=== PATIENT | male | born 1970 | race Caucasian/White ===

== ENCOUNTER 2019-10-29 16:39 | Emergency (ER) | payer BC ==
--- NOTE | 2019-10-29 16:48 | EDM.PDOC ---
ED HPI GENERAL MEDICAL PROBLEM - General Stated Complaint: SOB, FROM CLINIC Time Seen by Provider: 10/29/19 16:45 Source of Information: Reports: Patient History Limitations: Reports: No Limitations - History of Present Illness INITIAL COMMENTS - FREE TEXT/NARRATIVE: 49-year-old male who reports on Tuesday developed cough with some feelings of difficulty breathing and wheezing. He states it was mostly in his upper chest and since Tuesday and has progressively worsened with time and seemed to move into his lower chest increase wheezing and increased shortness of breath. Today it was quite severe and he presented to the [facility] in [place] with O2 saturations of 80% on room air. EMS was called and the patient was transported here for evaluation. He did receive a DuoNeb on the way over and he reports minimal relief of his difficulty breathing with this DuoNeb. He also developed bilateral sharp chest pains on Tuesday associated with the cough and deep breaths and these seem to have worsened with time as well. He rates this pain is as a 7-8/10 at present. They do not radiate. He has had no phlegm production. He has had no hemoptysis. No fever or chills. No nausea or vomiting. He has had decreased appetite and decreased oral intake over the past 24 hours. He has never had breathing problems in the past. He is a smoker. There are no other associated signs or symptoms. There are no other modifying factors. 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) ED ROS GENERAL - Review of Systems Review Of Systems: See Below Constitutional: Reports: No Symptoms HEENT: Reports: No Symptoms Respiratory: Reports: Shortness of Breath, Wheezing, Pleuritic Chest Pain, Cough Cardiovascular: Reports: Chest Pain GI/Abdominal: Reports: No Symptoms : Reports: No Symptoms Musculoskeletal: Reports: No Symptoms Skin: Reports: No Symptoms Neurological: Reports: No Symptoms Hematologic/Lymphatic: Reports: No Symptoms Immunologic: Reports: No Symptoms ED EXAM, GENERAL - Physical Exam Exam: See Below Exam Limited By: No Limitations General Appearance: Alert, WD/WN, Moderate Distress (The patient is awake and alert. He is in some respiratory distress with increased work of breathing.) Eye Exam: Bilateral Eye: EOMI, Normal Inspection, PERRL Ears: Normal External Exam, Hearing Grossly Normal Ear Exam: Bilateral Ear: Auricle Normal Nose: Normal Inspection, Normal Mucosa, No Blood Throat/Mouth: Normal Inspection, Normal Lips, Normal Oropharynx, Normal Voice, No Airway Compromise, Other (The patient is edentulous) Head: Atraumatic, Normocephalic Neck: Normal Inspection, Supple, Non-Tender, Full Range of Motion Respiratory/Chest: Respiratory Distress, Rhonchi, Wheezing, Accessory Muscle Use , Retractions, Prolonged Expiration Cardiovascular: Normal Peripheral Pulses, Regular Rate, Rhythm, No JVD, No Murmur Peripheral Pulses: 2+: Radial (L), Radial (R), Dorsalis Pedis (L), Dorsalis Pedis (R) GI/Abdominal: Normal Bowel Sounds, Soft, Non-Tender, No Mass Back Exam: Normal Inspection, Full Range of Motion Extremities: Normal Range of Motion, Non-Tender, No Pedal Edema, Normal Capillary Refill, Other (Patient with deformity to left foot from previous amputation what appears to be a transmetatarsal amputation) Neurological: Alert, Oriented, CN II-XII Intact, Normal Cognition, No Motor/ Sensory Deficits Psychiatric: Normal Affect Skin Exam: Warm, Dry, Intact, Normal Color, No Rash EKG INTERPRETATION EKG Date: 10/29/19 Time: 17:04 Rhythm: NSR Rate (Beats/Min): 86 [place]: Normal P-Wave: Present QRS: Normal ST-T: Other (Inferior and lateral T-wave flattening) QT: Normal Comparison: NA - No Prior EKG Course - Vital Signs Last Recorded V/S: Last Vital Signs Temp 36.1 C 10/29/19 16:39 Pulse 93 10/29/19 16:39 Resp 18 10/29/19 16:39 BP 133/86 10/29/19 16:39 Pulse Ox 77 L 10/29/19 16:39 - Orders/Labs/Meds Orders: Active Orders 24 hr Category Date Time Status EKG Documentation Completion [RC] ASDIRECTED Care 10/29/19 16:59 Active RT Aerosol Therapy [RC] ASDIRECTED Care 10/29/19 17:00 Active Chest 1V Frontal [CR] Stat Exams 10/29/19 16:58 Taken BLOOD GAS VENOUS [BG] Stat Lab 10/29/19 18:30 Received CULTURE BLOOD [BC] Urgent Lab 10/29/19 18:30 Received CULTURE BLOOD [BC] Urgent Lab 10/29/19 18:39 Received ISTAT G3,VENOUS [POC] Routine Lab 10/29/19 18:50 Results UA W/MICROSCOPIC [URIN] Stat Lab 10/29/19 17:53 Ordered Sodium Chloride 0.9% [Normal Saline] 1,000 ml Med 10/29/19 17:00 Active IV ASDIRECTED Sodium Chloride 0.9% [Saline Flush] Med 10/29/19 16:58 Active 10 ml FLUSH ASDIRECTED PRN Blood Culture x2 Reflex Set [OM.PC] Urgent Oth 10/29/19 17:50 Ordered Peripheral IV Insertion Adult [OM.PC] Routine Oth 10/29/19 16:58 Ordered EKG 12 Lead [EK] Routine Ther 10/29/19 16:58 Ordered Medication Orders Sodium Chloride (Normal Saline) 1,000 mls @ 125 mls/hr IV ASDIRECTED JEANIE Last Admin: 10/29/19 17:23 Dose: 125 mls/hr Sodium Chloride (Saline Flush) 10 ml FLUSH ASDIRECTED PRN PRN Reason: Keep Vein Open Last Admin: 10/29/19 17:24 Dose: 10 ml Labs: Laboratory Tests 10/29/19 10/29/19 10/29/19 Range/Units 17:10 17:10 17:10 WBC 6.0 (4.5-12.0) X10-3/uL RBC 3.30 L (4.30-5.75) x10(6)uL Hgb 10.3 L (13.5-17.8) g/dL Hct 30.3 (30.0-51.3) % MCV 91.9 (80-96) fL MCH 31.3 (27.7-33.6) pg MCHC 34.0 (32.2-35.4) g/dL RDW 15.2 (11.5-15.5) % Plt Count 155 (125-369) X10(3)uL MPV 8.0 (7.4-10.4) fL Neut % (Auto) 78.6 (46-82) % Lymph % (Auto) 15.1 (13-37) % Treasure % (Auto) 5.9 (4-12) % Eos % (Auto) 0 L (1.0-5.0) % Baso % (Auto) 0 (0-2) % Neut # (Auto) 4.7 (1.6-8.3) # Lymph # (Auto) 0.9 (0.6-5.0) # Treasure # (Auto) 0.4 (0.0-1.3) # Eos # (Auto) 0.0 (0.0-0.8) # Baso # (Auto) 0.0 (0.0-0.2) # PT (8.7-11.1) INR (0.89-1.13) APTT (24.4-33.2) SECONDS D-Dimer, Quantitative (0.0-0.59) mg/LFEU POC VBG pH (7.31-7.41) POC VBG pCO2 (41-51) mmHG POC VBG Total CO2 (24-29) mmol/L POC VBG Base Excess (-2-3) mmol/L Sodium 141 (135-145) mmol/L Potassium 3.6 (3.5-5.3) mmol/L Chloride 99 L (100-110) mmol/L Carbon Dioxide 34 H (21-32) mmol/L BUN 19 H (7-18) mg/dL Creatinine 1.2 (0.70-1.30) mg/dL Est Cr Clr Drug Dosing TNP Estimated GFR (MDRD) > 60 (>60) BUN/Creatinine Ratio 15.8 (9-20) Glucose 103 (80-116) mg/dL Calcium 8.9 (8.6-10.2) mg/dL Magnesium (1.8-2.5) mg/dL Total Bilirubin 0.5 (0.1-1.3) mg/dL AST 39 H (5-25) IU/L ALT 27 (12-36) U/L Alkaline Phosphatase 41 L (56-112) IU/L Troponin I 6.7 (4.0-60.3) pg/mL C-Reactive Protein 15.9 H* (0.5-0.9) mg/dL NT-Pro-B Natriuret Pep 239 H (<=125) pg/mL Total Protein 8.0 (6.0-8.0) g/dL Albumin 4.3 (3.5-5.2) g/dL Globulin 3.7 g/dL Albumin/Globulin Ratio 1.2 Urine Opiates Screen (NEGATIVE) Ur Oxycodone Screen (NEGATIVE) Ur Propoxyphene Screen (NEGATIVE) Ur Barbituates Screen (NEGATIVE) Ur Tricyclics Screen (NEGATIVE) Ur Phencyclidine Scrn (NEGATIVE) Ur Amphetamine Screen (NEGATIVE) Urine MDMA Screen (NEGATIVE) U Benzodiazepines Scrn (NEGATIVE) U Cocaine Metab Screen (NEGATIVE) U Marijuana (THC) Screen (NEGATIVE) 10/29/19 10/29/19 10/29/19 Range/Units 17:10 17:10 17:10 WBC (4.5-12.0) X10-3/uL RBC (4.30-5.75) x10(6)uL Hgb (13.5-17.8) g/dL Hct (30.0-51.3) % MCV (80-96) fL MCH (27.7-33.6) pg MCHC (32.2-35.4) g/dL RDW (11.5-15.5) % Plt Count (125-369) X10(3)uL MPV (7.4-10.4) fL Neut % (Auto) (46-82) % Lymph % (Auto) (13-37) % Treasure % (Auto) (4-12) % Eos % (Auto) (1.0-5.0) % Baso % (Auto) (0-2) % Neut # (Auto) (1.6-8.3) # Lymph # (Auto) (0.6-5.0) # Treasure # (Auto) (0.0-1.3) # Eos # (Auto) (0.0-0.8) # Baso # (Auto) (0.0-0.2) # PT 10.4 (8.7-11.1) INR 1.07 (0.89-1.13) APTT 33.0 (24.4-33.2) SECONDS D-Dimer, Quantitative 0.61 H (0.0-0.59) mg/LFEU POC VBG pH (7.31-7.41) POC VBG pCO2 (41-51) mmHG POC VBG Total CO2 (24-29) mmol/L POC VBG Base Excess (-2-3) mmol/L Sodium (135-145) mmol/L Potassium (3.5-5.3) mmol/L Chloride (100-110) mmol/L Carbon Dioxide (21-32) mmol/L BUN (7-18) mg/dL Creatinine (0.70-1.30) mg/dL Est Cr Clr Drug Dosing Estimated GFR (MDRD) (>60) BUN/Creatinine Ratio (9-20) Glucose (80-116) mg/dL Calcium (8.6-10.2) mg/dL Magnesium 2.3 (1.8-2.5) mg/dL Total Bilirubin (0.1-1.3) mg/dL AST (5-25) IU/L ALT (12-36) U/L Alkaline Phosphatase (56-112) IU/L Troponin I (4.0-60.3) pg/mL C-Reactive Protein (0.5-0.9) mg/dL NT-Pro-B Natriuret Pep (<=125) pg/mL Total Protein (6.0-8.0) g/dL Albumin (3.5-5.2) g/dL Globulin g/dL Albumin/Globulin Ratio Urine Opiates Screen (NEGATIVE) Ur Oxycodone Screen (NEGATIVE) Ur Propoxyphene Screen (NEGATIVE) Ur Barbituates Screen (NEGATIVE) Ur Tricyclics Screen (NEGATIVE) Ur Phencyclidine Scrn (NEGATIVE) Ur Amphetamine Screen (NEGATIVE) Urine MDMA Screen (NEGATIVE) U Benzodiazepines Scrn (NEGATIVE) U Cocaine Metab Screen (NEGATIVE) U Marijuana (THC) Screen (NEGATIVE) 10/29/19 10/29/19 Range/Units 18:00 18:50 WBC (4.5-12.0) X10-3/uL RBC (4.30-5.75) x10(6)uL Hgb (13.5-17.8) g/dL Hct (30.0-51.3) % MCV (80-96) fL MCH (27.7-33.6) pg MCHC (32.2-35.4) g/dL RDW (11.5-15.5) % Plt Count (125-369) X10(3)uL MPV (7.4-10.4) fL Neut % (Auto) (46-82) % Lymph % (Auto) (13-37) % Treasure % (Auto) (4-12) % Eos % (Auto) (1.0-5.0) % Baso % (Auto) (0-2) % Neut # (Auto) (1.6-8.3) # Lymph # (Auto) (0.6-5.0) # Treasure # (Auto) (0.0-1.3) # Eos # (Auto) (0.0-0.8) # Baso # (Auto) (0.0-0.2) # PT (8.7-11.1) INR (0.89-1.13) APTT (24.4-33.2) SECONDS D-Dimer, Quantitative (0.0-0.59) mg/LFEU POC VBG pH 7.39 (7.31-7.41) POC VBG pCO2 51.5 H (41-51) mmHG POC VBG Total CO2 33 H (24-29) mmol/L POC VBG Base Excess 6 H (-2-3) mmol/L Sodium (135-145) mmol/L Potassium (3.5-5.3) mmol/L Chloride (100-110) mmol/L Carbon Dioxide (21-32) mmol/L BUN (7-18) mg/dL Creatinine (0.70-1.30) mg/dL Est Cr Clr Drug Dosing Estimated GFR (MDRD) (>60) BUN/Creatinine Ratio (9-20) Glucose (80-116) mg/dL Calcium (8.6-10.2) mg/dL Magnesium (1.8-2.5) mg/dL Total Bilirubin (0.1-1.3) mg/dL AST (5-25) IU/L ALT (12-36) U/L Alkaline Phosphatase (56-112) IU/L Troponin I (4.0-60.3) pg/mL C-Reactive Protein (0.5-0.9) mg/dL NT-Pro-B Natriuret Pep (<=125) pg/mL Total Protein (6.0-8.0) g/dL Albumin (3.5-5.2) g/dL Globulin g/dL Albumin/Globulin Ratio Urine Opiates Screen Negative (NEGATIVE) Ur Oxycodone Screen Negative (NEGATIVE) Ur Propoxyphene Screen Negative (NEGATIVE) Ur Barbituates Screen Negative (NEGATIVE) Ur Tricyclics Screen Negative (NEGATIVE) Ur Phencyclidine Scrn Negative (NEGATIVE) Ur Amphetamine Screen Negative (NEGATIVE) Urine MDMA Screen Negative (NEGATIVE) U Benzodiazepines Scrn Negative (NEGATIVE) U Cocaine Metab Screen Negative (NEGATIVE) U Marijuana (THC) Screen Negative (NEGATIVE) Meds: Medications Generic Name Dose Route Start Last Admin Trade Name Freq PRN Reason Stop Dose Admin Sodium Chloride 1,000 mls @ 125 mls/hr 10/29/19 17:00 10/29/19 17:23 Normal Saline IV 125 mls/hr ASDIRECTED JEANIE Administration Sodium Chloride 10 ml 10/29/19 16:58 10/29/19 17:24 Saline Flush FLUSH 10 ml ASDIRECTED PRN Administration Keep Vein Open Discontinued Medications Generic Name Dose Route Start Last Admin Trade Name Freq PRN Reason Stop Dose Admin Albuterol 5 mg 10/29/19 16:59 10/29/19 17:23 Proventil Neb Soln NEB 10/29/19 17:00 5 mg ONETIME ONE Administration Ceftriaxone Sodium 2 gm 10/29/19 17:51 10/29/19 18:12 Rocephin IVPUSH 10/29/19 17:52 2 gm ONETIME ONE Administration Azithromycin 500 mg/ Sodium 250 mls @ 250 mls/hr 10/29/19 17:51 10/29/19 18: 16 Chloride IV 10/29/19 18:50 250 mls/hr ONETIME ONE Administration Methylprednisolone Sodium Succinate 125 mg 10/29/19 16:59 10/29/19 17:23 Solu-Medrol IVPUSH 10/29/19 17:00 125 mg ONETIME ONE Administration - Radiology Interpretation Free Text/Narrative:: Portable chest x-ray shows bilateral infiltrates. - Re-Assessments/Exams Free Text/Narrative Re-Assessment/Exam: 10/29/19 17:50: The patient seemed to have a decrease in his sats while he was getting the neb. He is still quite wheezy with poor air movement. Following the neb he feels like he has had no real improvement but his O2 saturations are now 96% on 6 L/m via nasal cannula. He remains awake and alert and vitally stable. He appears to have bilateral pneumonia on his chest x-ray. His bicarbonate was 34 which suggests that he has some CO2 retention. And that suggested this is more chronic than he has admitted to. He will need admission for treatment of this and there are no beds available at [facility]. Therefore, the patient will need to be transferred to another facility with beds available. I discussed this with the patient and he would prefer that I discussed his case with the doctors at [facility] in [place]. He will be getting Solu-Medrol 125 mg IV, blood cultures 2 sets, Rocephin and Zithromax IV following the blood cultures and continued close monitoring. 10/29/19 18:45: I discussed the patient's case with Dr. Arnett, hospitalist at [facility] in [place], and he has agreed to accept the patient in transfer. The patient remains vitally stable at this point. I still do not have the patient's blood gas results at this point and I added a magnesium level and that is pending as well. His O2 saturations are 96% on 6 L/m via nasal cannula and he appears to be breathing more comfortably. His mentation remains normal. We will continue close monitoring for now. The patient will be transferred to [facility] in [place] for direct admission via ALS ambulance service. 10/29/19 18:59: Ambulance has been called to transport patient to [facility] in [place]. Blood gas now shows 7.39 with a PCO2 of 51. He is awake, alert and with an O2 saturation of 96% on 6 L/m via nasal cannula. Departure - Departure Time of Disposition: 19:15 Disposition: DC/Tfer to Acute Hospital 02 Condition: Fair (Guarded) Clinical Impression: Acute respiratory failure with hypoxia and hypercapnia, Bronchospasm Bilateral pneumonia Qualifiers: Pneumonia type: due to unspecified organism Lung location: unspecified part of lung Qualified Code(s): J18.9 - Pneumonia, unspecified organism - Discharge Information Referrals: PCP,Unknown [Ordering Only Provider] - Critical Care Note - Critical Care Note Total Time (mins): 50 Comments: Patient with significant respiratory distress upon arrival requiring high oxygen. He required needed attention when he arrived and careful and close monitoring throughout the next 50 minutes therefore with 50 minutes of critical care time. Sepsis Event Note - Focused Exam Vital Signs: Vital Signs Temp Pulse Resp BP Pulse Ox 10/29/19 16:39 36.1 C 93 18 133/86 77 L Date Exam was Performed: 10/29/19 Time Exam was Performed: 18:59 - My Orders Last 24 Hours: My Active Orders 10/29/19 16:58 Chest 1V Frontal [CR] Stat Sodium Chloride 0.9% [Saline Flush] 10 ml FLUSH ASDIRECTED PRN Peripheral IV Insertion Adult [OM.PC] Routine EKG 12 Lead [EK] Routine 10/29/19 16:59 EKG Documentation Completion [RC] ASDIRECTED 10/29/19 17:00 RT Aerosol Therapy [RC] ASDIRECTED Sodium Chloride 0.9% [Normal Saline] 1,000 ml IV ASDIRECTED 10/29/19 17:50 Blood Culture x2 Reflex Set [OM.PC] Urgent 10/29/19 17:53 UA W/MICROSCOPIC [URIN] Stat 10/29/19 18:30 BLOOD GAS VENOUS [BG] Stat CULTURE BLOOD [BC] Urgent 10/29/19 18:39 CULTURE BLOOD [BC] Urgent 10/29/19 18:50 ISTAT G3,VENOUS [POC] Routine - Assessment/Plan Last 24 Hours: My Active Orders 10/29/19 16:58 Chest 1V Frontal [CR] Stat Sodium Chloride 0.9% [Saline Flush] 10 ml FLUSH ASDIRECTED PRN Peripheral IV Insertion Adult [OM.PC] Routine EKG 12 Lead [EK] Routine 10/29/19 16:59 EKG Documentation Completion [RC] ASDIRECTED 10/29/19 17:00 RT Aerosol Therapy [RC] ASDIRECTED Sodium Chloride 0.9% [Normal Saline] 1,000 ml IV ASDIRECTED 10/29/19 17:50 Blood Culture x2 Reflex Set [OM.PC] Urgent 10/29/19 17:53 UA W/MICROSCOPIC [URIN] Stat 10/29/19 18:30 BLOOD GAS VENOUS [BG] Stat CULTURE BLOOD [BC] Urgent 10/29/19 18:39 CULTURE BLOOD [BC] Urgent 10/29/19 18:50 ISTAT G3,VENOUS [POC] Routine
[2019-10-29] MEDS ORDERED: Sodium Chloride 0.9% 10 ML Syringe FLUSH PRN (16:58)
[2019-10-29] MEDS ORDERED: methylPREDNISolone Sodium Succinate 125 MG/2 ML SDV IVPUSH ONE (16:59)
[2019-10-29] MEDS ORDERED: Albuterol 0.083% 2.5 MG/3 ML Neb Soln NEB ONE (16:59)
[2019-10-29] MEDS ORDERED: Sodium Chloride 0.9% 1,000 ML IV SCH (17:00)
[2019-10-29] MEDS ORDERED: Azithromycin 500 MG in Sodium Chloride 0.9% 250 ML IV ONE (17:51)
[2019-10-29] MEDS ORDERED: cefTRIAXone 2 GM Vial IVPUSH ONE (17:51)
== END 2019-10-29 19:29 ==
LOC: FB.ED 16:39
DX: J96.02 Acute respiratory failure with hypercapnia (principal); J96.01 Acute respiratory failure with hypoxia; J98.01 Acute bronchospasm
CPT/HCPCS: 36415; 71045; 80053; 80305; 81001; 82803; 83735; 83880; 84484; 85025; 85379; 85610; 85730; 86140; 87040; 93005; 94640; 96361; 96365; 96375; 99291; J0456; J0696; J2930; J7030; J7050